=== PATIENT | female | born 1975 | race Caucasian/White ===

== ENCOUNTER → 2021-11-09 10:07 | Outpatient (POV) | payer SELFPAY | PROVIDERS: Visit Provider Dermatology | DX: Z00.00 Encounter for general adult medical examination without abnormal findings (principal) ==

== ENCOUNTER 2023-09-22 18:59 | Emergency (ER) | payer BC, SELFPAY ==
[2023-09-22 18:59] VITALS: BP 153/101; PULSE 128; RESP 18; TEMP 37.5; O2SAT 99; BMI 36.3
--- NOTE | 2023-09-22 19:00 | ECG_ITS ---
APPROVED REPORT Exam: Resting ECG HR:127 bpm ECG Measurements Heart Rate 127 AXES IA 154 P 63 QRSd 65 QRS 22 QT 308 T 68 QTc 383 Conclusion SINUS TACHYCARDIA ABNORMAL RHYTHM ECG UNCONFIRMED REPORT Electronically signed by : VESNA BROUSSARD, 09/24/2023 06:18:59
--- NOTE | 2023-09-22 19:10 | CT_ITS ---
PROCEDURE INFORMATION: Exam: CTA Chest With Contrast Exam date and time: 09/22/2023 7:53 PM Age: 48 years old Clinical indication: Pain; Chest pressure; Additional info: Sudden pleuritic cp, tachy TECHNIQUE: Imaging protocol: Computed tomographic angiography of the chest with contrast. Exam focused on the arteries. 3D rendering (Not supervised by radiologist): MIP and/or 3D reconstructed images were created by the technologist. Radiation optimization: All CT scans at this facility use at least one of these dose optimization techniques: automated exposure control; mA and/or kV adjustment per patient size (includes targeted exams where dose is matched to clinical indication); or iterative reconstruction. Contrast material: ISOVUE 370; Contrast volume: 70 ml; Contrast route: INTRAVENOUS (IV); COMPARISON: No relevant prior studies available. FINDINGS: Pulmonary arteries: Normal. No pulmonary emboli. Aorta: Unremarkable. No aortic aneurysm. No aortic dissection. Lungs: Unremarkable. No consolidation. No masses. Pleural spaces: Unremarkable. No pneumothorax. No pleural effusion. Heart: Unremarkable. No cardiomegaly. No pericardial effusion. Lymph nodes: Unremarkable. No enlarged lymph nodes. Bones/joints: Unremarkable. No acute fracture. Soft tissues: Unremarkable. IMPRESSION: No acute findings.
--- NOTE | 2023-09-22 19:12 | [facility].EDCP ---
Discharge Plan Disposition Patient Disposition: Home, Self-Care Activity Restrictions/Add. Instructions Additional Instructions/Restrictions: No definitive emergent medical condition identified today to explain your pleuritic chest pain. Possible you have nonspecific pleurisy which is an inflammatory condition around the lining of your lungs which may be idiopathic or preceded by a viral illness as we discussed. Please take 800 mg of ibuprofen 3 times a day as needed for symptoms over the next week. There is no evidence of a heart attack aortic dissection pulmonary embolism pneumonia etc. Please follow-up with primary care doctor and return with any significant worsening symptoms. Clinical Impressions Clinical Impression: Chest pain, pleuritic, Tachycardia, Anxiety Discharge ED Provider: Nash [place] HPI General Chief Complaint: Chest Pain Stated Complaint: CP Time Seen by Provider: 09/22/23 19:04 History of Present Illness HPI narrative: Patient is an obese 48-year-old previously healthy female presenting today with sudden pleuritic chest pain that began yesterday morning. Is been ongoing since that time. Located left anterior chest worsening with breathing. No recent infections no fevers no cough she does have a little bit of pain in her back. No history of hypertension. She has not had any prolonged immobilizations lower extremity swelling history of DVT or PE hemoptysis etc. She does have an IUD but is not on any other hormonal therapies. Related Data Allergies Allergy/AdvReac Type Severity Reaction Status Date / Time No Known Allergies Allergy Verified 09/22/23 20:10 [facility] Disclaimer: The information contained in this section may have been updated after the patient was seen, as this information can be updated by other users. Social History Smoking Status: Current some day smoker alcohol intake: never current occupational status: other Travel in the last 8 weeks: None ROS Obtained: Yes All systems reviewed & no additional complaints except as documented Physical Exam General General appearance: alert Chest Chest inspection: Present normal inspection and symmetric chest wall rise Respiratory Respiratory exam: Present normal lung sounds bilaterally; Absent respiratory distress Cardiovascular Cardiovascular exam: Present tachycardia (Heart rate 125 on my exam) Neurological Exam Neurological exam: Present alert and oriented X3 HEART Score HEART Score HEART Score assessment performed?: Yes History (anamnesis): Slightly suspicious ECG: Normal Age: 45-65 years Risk factors: No known risk factors Troponin: </= normal limit HEART Score: 1 Critical Care Critical Care Time Critical Care Time: No Medical Decision Making Micky Inquiry Pt receiving controlled substance: No Vital Signs Vital Signs: 09/22/23 18:59 Temperature 99.5 F Temperature Source Oral Pulse Rate [Right Brachial] 128 H Respiratory Rate 18 Blood Pressure [Right Arm] 153/101 H Blood Pressure Mean [Right Arm] 118 02 Sat by Pulse Oximetry 99 Oxygen Delivery Method Room Air Lab Data Lab results reviewed: Yes I reviewed the patient's lab results. Labs: Lab Results 09/22/23 19:05: WBC 12.7 H, RBC 4.55, Hgb 15.9, Hct 46.3, MCV 101.8 H, MCH 34.9 H, MCHC 34.3, RDW 13.5, Plt Count 254, MPV 8.8, Neut % (Auto) 61.3, Lymph % (Auto) 30.6, [place] % (Auto) 5.2, Eos % (Auto) 1.6, Baso % (Auto) 1.2, Neut # (Auto) 7.8, Lymph # (Auto) 3.9, [place] # (Auto) 0.7, Eos # (Auto) 0.2, Baso # (Auto) 0.2, Sodium 138, Potassium 3.7, Chloride 104, Carbon Dioxide 29, Anion Gap 8.7, BUN 14, Creatinine 0.70, Estimated Creat Clear 160, Estimated GFR 90, Est GFR ( Amer) 109, Glucose 98, Calcium 9.2, Total Bilirubin 1.0, AST 41 H, ALT 45, Alkaline Phosphatase 94, Troponin I < 0.01, NT-Pro-B Natriuret Pep < 20.0, Total Protein 7.5, Albumin 4.4, Globulin 3.1, Albumin/Globulin Ratio 1.4 09/22/23 19:05 09/22/23 19:05 Response Orders (Tests/Meds): ED MEDICATIONS Generic Name Dose Route Start Last Admin Trade Name Freq PRN Reason Stop Dose Admin Sodium Chloride 10 ml 09/22/23 19:10 Sodium Chloride 0.9% 10ml Vial IV 10/22/23 19:09 NEEDED PRN to Dilute Lorazepam inj Sodium Chloride 10 ml 09/22/23 20:17 09/22/23 20:17 Sodium Chloride 0.9% 10ml Syr (Rad Only) IV 10/22/23 20:16 10 ml NEEDED PRN Administration Maintain IV Site Discontinued Medications Generic Name Dose Route Start Last Admin Trade Name Freq PRN Reason Stop Dose Admin Lactated Ringer's 1,000 mls @ 999 mls/hr 09/22/23 19:15 09/22/23 20:11 Lactated Ringer's 1000 Ml Bag IV 09/22/23 20:15 999 mls/hr .Q1H1M POPPY Administration Iopamidol 70 ml 09/22/23 20:17 09/22/23 20:17 Iopamidol-370 (76%);100ml Bottle IV 09/22/23 20:18 70 ml ONCE ONE Administration Ketorolac Tromethamine 15 mg 09/22/23 19:10 09/22/23 20:11 Ketorolac 30mg/Ml Vial IV 09/22/23 19:11 15 mg ONCE ONE Administration Lorazepam 1 mg 09/22/23 19:10 09/22/23 20:11 Lorazepam 2mg/Ml Vial IV 09/22/23 19:11 1 mg ONCE ONE Administration Sodium Chloride 50 ml 09/22/23 20:17 09/22/23 20:18 0.9 % Sodium Chloride 50 Ml Vial IV 09/22/23 20:18 50 ml ONCE ONE Administration ORDERS Category Date Time Status CT angio chest PE protocol Stat Cat Scan 09/22/23 19:10 Completed BNP [NT Pro Brain Natriuretic Pep.] Stat Lab 09/22/23 19:05 Completed CBC w/Auto Diff [Complete Blood Count Auto Diff] Stat Lab 09/22/23 19:05 Completed CMP [Comprehensive Metabolic Panel] Stat Lab 09/22/23 19:05 Completed Trop I [Troponin I] Stat Lab 09/22/23 19:05 Completed Troponin I Q3H Lab 09/22/23 22:15 Ordered Troponin I Q3H Lab 09/23/23 01:15 Ordered ECG Data Tracing #1: Attestation: I reviewed this ECG and interpreted as documented below: ECG Narrative: Ventricular rate 127 sinus tachycardia no acute ischemic changes noted no significant right heart strain noted no conduction abnormalities there is indeterminate axis MDM Narrative Medical Decision Narrative: 48-year-old female presents today with sudden pleuritic chest pain and tachycardia. Bleeding on the differential is pulmonary embolism with a CT PE to evaluate this. Other things in the differential would be acute coronary syndrome myocarditis pericarditis musculoskeletal strain anxiety. Patient is crying on my exam most likely just because of her clinical status will give her some Ativan to calm her down I do not believe that is her primary diagnosis at this point while we workup other things will try to make her comfortable. Will reassess after this initial workup is complete. Reassessment 10:26 PM patient very stable on reassessment CT scan performed to person interpreted shows no pulmonary embolism aortic dissection or other acute abnormality this is also consistent with radiology read. Troponin undetectably low with ongoing unchanged symptoms since yesterday this is not consistent with acute myocardial injury myocarditis etc. It is possible this was anxiety or stress or pleurisy or other nonemergent conditions. She has been advised to take ibuprofen at home and follow-up with primary care doctor as needed.
[2023-09-22 19:18] LABS: Basophils # 0.2 K/mm3 (0-0.2); Basophils % 1.2 % (0.1-2.0); Eosinophils # 0.2 K/mm3 (0.0-0.4); Eosinophils % 1.6 % (0.1-12.0); Hematocrit 46.3 % (37.0-47.0); Hemoglobin 15.9 g/dL (12.2-16.2); Lymphocytes # 3.9 K/mm3 (0.7-4.5); Lymphocytes % 30.6 % (10-50); Mean Corpuscular HGB Conc 34.3 g/dL (31.8-35.4); Mean Corpuscular Hemoglobin 34.9 pg (27.0-31.2); Mean Corpuscular Volume 101.8 fl (81-99); Mean Platelet Volume 8.8 fl (7.4-10.4); Monocytes # 0.7 K/mm3 (0.1-1.0); Monocytes % 5.2 % (1.7-9.3); Neutrophils # 7.8 K/mm3 (1.8-7.8); Neutrophils % 61.3 % (37.0-80.0); Platelet Count 254 K/mm3 (142-424); Red Blood Count 4.55 M/mm3 (4.20-5.40); Red Cell Distribution Width 13.5 % (11.5-17.5); White Blood Count 12.7 K/mm3 (4.8-10.8)
[2023-09-22 19:36] LABS: Chloride 104 mmol/L (98-107)
[2023-09-22 19:37] LABS: Potassium 3.7 mmoL/L (3.5-5.1); Sodium 138 mmol/L (136-145)
[2023-09-22 19:39] LABS: Alanine Aminotransferase 45 U/L (12-78); Alkaline Phosphatase 94 U/L (38-126); Aspartate Amino Transferase 41 U/L (14-36); Blood Urea Nitrogen 14 mg/dl (7-17); Creatinine Clearance Estimated 160 mL/min (50-200); Estimated Glomerular Filt Rate 90 ml/min (>60); GFR (African American) 109 ML/MIN (>60)
[2023-09-22 19:40] LABS: Albumin Level 4.4 g/dl (3.5-5.0); Albumin/Globulin Ratio 1.4 (1.1-1.8); Anion Gap 8.7 mEq/L (5-15); Calcium 9.2 mg/dl (8.4-10.2); Carbon Dioxide 29 mmol/L (22.0-30.0); Globulin 3.1 g/dL (1.3-3.2); Glucose 98 mg/dl (74-100); Total Protein,Serum 7.5 g/dl (6.3-8.2)
[2023-09-22 19:49] LABS: NT Pro Brain Natriuretic Pep. < 20.0 pg/mL (0-125)
[2023-09-22 19:57] LABS: Troponin I < 0.01 ng/ml (0.00-0.034)
--- OUTSIDE RECORDS SUMMARY | 2023-09-22 20:01 | XMS_ITS | Patient Health Record ---
Author Name Unknown Organization [facility] Address [address] [place] [address] Care Team Providers Care Landscaper Name Role Phone Paula Denny Unavailable [phone] CristelDot colbert Unavailable [phone] Reason For Referral No Information Social History Sex Assigned At : Social History Observation Description Sex Assigned At Female Problems Problem Type SNOMED Code ICD Code Onset Dates Problem Status W/U Status Risk Notes Problem Gynecological examination normal ([id number] ) Cervical smear, as part of routine gynecological examination (Z01.419) 09/29/19 17 Active confirmed Annual without abnormal findings Plan Of Treatment No Information Medical (General) History Medical History History ICD Code MENSTR FLOW: Medium None noted A Routine MOBIC TABLET MIRENA (52 MG) 20 MCG/24HR INTRAUTERINE INTRAUTERINE DEVICE VENTOLIN HFA 108 (90 Base) MCG/ACT INHAL ATION AEROSOL SOLUTION Surgical History Surgery Date(Month/Year) gallbladder surgery
[2023-09-22] MEDS: LORazepam 2MG/ML VIAL 1 MG IV (20:11)
[2023-09-22] MEDS: KETOROLAC 30MG/ML VIAL 15 MG IV (20:11)
[2023-09-22] MEDS: LACTATED RINGERS 1000ML 1,000 ML 999 ML IV (20:11)
[2023-09-22] MEDS: IOPAMIDOL-370 (76%);100ML BOTTLE 70 ML IV (20:17)
[2023-09-22] MEDS: SODIUM CHLORIDE 0.9% 10ML SYR (RAD ONLY) 10 ML IV (20:17)
[2023-09-22] MEDS: 0.9 % SODIUM CHLORIDE 50 ML VIAL IV (20:18)
[2023-09-22 22:29] VITALS: BP 143/81; PULSE 127; PULSE 94; RESP 18; TEMP 37.1; O2SAT 99
== END 2023-09-22 22:30 | disposition home or self-care (01) ==
PROVIDERS: Emergency Provider Student in an Organized Health Care Education/Training Program; PCP Internal Medicine
DX: R07.81 Pleurodynia (principal); R00.0 Tachycardia, unspecified; F41.9 Anxiety disorder, unspecified; F17.210 Nicotine dependence, cigarettes, uncomplicated
CPT/HCPCS: 71275; 80053; 83880; 84484; 85025; 93005; 96361; 96374; 96375; 99285; J1885; J2060; J7120; Q9967